=== PATIENT | female | born 2000 | race African-American/Black ===

== ENCOUNTER 2025-02-08 13:07 | Emergency (ER) | payer MEDICAID, OTHER ==
[~2025-02-08] VITALS: Ht 157.5 cm; Wt 70.1 kg
[2025-02-08 13:21] VITALS: BP 123/80; PULSE 98; RESP 16; TEMP 97.9; O2SAT 99
--- NOTE | 2025-02-08 13:23 | ED.PDOC ---
History of Present Illness HPI Comments A 24 YEAR OLD FEMALE PRESENTS TO THE ED WITH COMPLAINT OF ANXIETY AND PELVIC DISCOMFORT. PATIENT STATES SHE HAS BEEN EXPERIENCING INCREASED ANXIETY AND STRESS OFF AND ON FOR THE PAST 3 WEEKS DUE TO A FAMILY MEMBER PASSING AWAY RECENTLY. PATIENT NOTES SHE ALSO HAS A HISTORY OF UTERINE FIBROIDS AND HAS BEEN EXPERIENCING PELVIC DISCOMFORT/PRESSURE A RESULT OFF AND ON FOR THE PAST 3 DAYS. PATIENT DENIES DYSURIA, HEMATURIA, SI, HI, FEVER, CHILLS, SHORTNESS OF BREATH, CHEST PAIN, ABDOMINAL PAIN, NAUSEA, VOMITING, HEADACHE, OR OTHER COMPLAINTS. NO OTHER SYMPTOMS OR MODIFYING FACTORS AT THIS TIME. PATIENT IS ALERT, ORIENTED X 4, AND HAS STEADY GAIT. Time Seen by MD: 13:18 Reviewed Notes: Nurses Notes, Medications, Allergies Home Meds Active Scripts Naproxen (Naproxen) 500 Mg Tab, 500 MG PO BID, #30 TAB Prov:DAVID CARRILLO 02/08/25 Hydroxyzine Pamoate (Vistaril) 25 Mg Cap, 1 CAP PO BID, #30 CAP Prov:DAVID CARRILLO 02/08/25 Information Source: Patient Mode of Arrival: Ambulatory Severity: Moderate Timing: Weeks Duration: Intermittent Prehospital treatment: None Medication Refill: For: Other (ANXIETY AND PELVIC DISCOMFORT) Past Medical History PAST MEDICAL HISTORY: Anxiety Past Medical History (Other): UTERINE FIBROIDS Surgical History: Denies all surgeries MAILROOM COORDINATOR History: No Pertinent MAILROOM COORDINATOR History Family History Family History: Reviewed,noncontributory to illness Social History Smoker: Non-Smoker Alcohol: Denies ETOH Use Drugs: Denies Drug Use Lives In: Home Constitutional: reports: others (ANXIOUS ); denies: chills, diaphoresis, fatigue, fever, malaise, sweats, weakness EENTM: denies: blurred vision, double vision, ear bleeding, ear discharge, ear drainage, ear pain, ear ringing, eye pain, eye redness, hearing loss, mouth pain, mouth swelling, nasal discharge, nose bleeding, nose congestion, nose pain, photophobia, tearing, throat pain, throat swelling, voice changes, others Respiratory: denies: cough, hemoptysis, orthopnea, SOB at rest, shortness of breath, SOB with excertion, stridor, wheezing, others Cardiovascular: denies: chest pain, dizzy spells, diaphoresis, Dyspnea on exertion, edema, irregular heart beat, left arm pain, lightheadedness, palpitations, PND, syncope, others Gastrointestinal: denies: abdomen distended, abdominal pain, blood streaked bowels, constipated, diarrhea, dysphagia, difficulty swallowing, hematemesis, melena, nausea, poor appetite, poor fluid intake, rectal bleeding, rectal pain, vomiting, others Genitourinary: reports: pain (PELVIC DISCOMFORT/PRESSURE); denies: abnormal vagina bleeding, burning, dyspareunia, dysuria, flank pain, frequency, hematuria, incontinence, , vagina discharge, urgency, others Neurological: denies: dizziness, fainting, headache, left sided numbness, left sided weakness, numbness, paresthesia, pre-existing deficit, right sided numbnes s, right sided weakness, seizure, speech problems, tingling, tremors, weakness, others Musculoskeletal: denies: back pain, gout, joint pain, joint swelling, muscle pain, muscle stiffness, neck pain, others Integumetry: denies: bruises, change in color, change in hair/nails, dryness, laceration, lesions, lumps, rash, wounds, others Allergic/Immunocompromised: denies: Difficulty Healing, Frequent Infections, Hives, Itching, others Hematologic/Lymphatic: denies: anemia, blood clots, easy bleeding, easy bruising, swollen glands, others Endocrine: denies: excessive hunger, excessive sweating, excessive thirst, excessive urination, flushing, intolerance to cold, intolerance to heat, unexplained weight gain, unexplained weight loss, others Psychiatric: reports: anxiety; denies: bipolar disorder, depression, hopeless, panic disorder, schizophrenia, sleepless, suicidal, others All Other Systems: Reviewed and Negative Physical Exam General Appearance: Mild Distress, Normal, Other (ANXIOUS ) HEENT: Normal ENT Inspection, PERRL/EOMI, Pharynx Normal, TMs Normal Neck: Full Range of Motion, Non-Tender, Normal, Normal Inspection Respiratory: Chest Non-Tender, Lungs Clear, No Accessory Muscle Use, No Respiratory Distress, Normal Breath Sounds Cardiovascular: No Edema, No JVD, No Murmur, No Gallop, Normal Peripheral Pulses, Regular Rate/Rhythm Breast Exam: Deferred Gastrointestinal: No Organomegaly, Non Tender, No Pulsatile Mass, Normal Bowel Sounds, Soft Genitalia: Deferred Pelvic: Normal External Exam, Tender Uterus (NO GUARDING AND REBOUND TENDERNESS. ) Rectal: Deferred Extremities: No calf tenderness, Normal capillary refill, Normal inspection, Normal range of motion, Non-tender, No pedal edema Musculoskeletal : Apperance: Normal Neurologic: Alert, back office medical assistant II-XII nml as Tested, No Motor Deficits, Normal Affect, Normal Mood, No Sensory Deficits Cerebellar Function: Normal Reflexes: Normal Skin: Dry, Normal Color, Warm Peripheral Pulses: 2+ carotid (R), 2+ carotid (L) Lymphatic: No Adenopathy Was a procedure done? Was a procedure done?: No Differential Dx Considerations may include: UTI, ACUTE CYSTITIS, ANXIETY REACTION, HYPERVENTILATION SYNDROME, UTERINE FIBROIDS,, DEHYDRATION, ELECTROLYTE IMBALANCE X-Ray, Labs, Meds, VS Vital Signs Date Time Temp Pulse Resp B/P (MAP) Pulse Ox O2 Delivery O2 Flow Rate FiO2 02/08/25 13:21 97.9 98 16 123/80 (94) 99 97.9 Lab Test 02/08/25 14:01 02/08/25 13:46 Range/Units Urine Color Light-yellow Yellow Urine Clarity Clear Clear Urine pH 6.5 5.0-9.0 Urine Specific [place] 1.003 1.001-1.035 Urine Protein Negative Negative Urine Ketones Negative Negative Urine Blood Negative Negative /uL Urine Nitrite Negative Negative Urine Bilirubin Negative Negative Urine Urobilinogen Normal Negative mg/dL Urine Leukocyte Esterase 1+ Negative /uL Urine RBC <1 0 - 4 /hpf Urine Microscopic WBC 3 0-5 /HPF Urine Squamous Epithelial Cells Few <5 /hpf Urine Bacteria Few H None Seen /hpf Urine Glucose Normal Normal mg/dL Urine Test Negative Negative White Blood Count 4.6 4.4-10.8 10^3/uL Red Blood Count 4.59 4.0-5.20 10^6/uL Hemoglobin 12.8 12.2-16.2 g/dL Hematocrit 38.7 36.0-46.0 % Mean Corpuscular Volume 84.3 80.0-100.0 fL Mean Corpuscular Hemoglobin 27.8 L 28.0-32.0 pg Mean Corpuscular Hemoglobin Concent 33.0 32.0-36.0 g/dL Red Cell Distribution Width 14.8 H 11.8-14.3 % Platelet Count 212 140-450 10^3/uL Mean Platelet Volume 7.8 6.9-10.8 fL Neutrophils (%) (Auto) 70.5 37.0-80.0 % Lymphocytes (%) (Auto) 21.3 10.0-50.0 % Monocytes (%) (Auto) 6.9 0.0-12.0 % Eosinophils (%) (Auto) 0.8 0.0-7.0 % Basophils (%) (Auto) 0.5 0.0-2.0 % Neutrophils # (Auto) 3.3 1.6-8.6 10 ^3/uL Lymphocytes # (Auto) 1.0 0.4-5.4 10 ^3/uL Monocytes # (Auto) 0.3 0-1.3 10 ^3/uL Eosinophils # (Auto) 0 0-0.8 10 ^3/uL Basophils # (Auto) 0 0-0.2 10 ^3/uL Nucleated Red Blood Cells 0.0 % Sodium Level 140 136-145 mmol/L Potassium Level 3.2 L 3.5-5.1 mmol/L Chloride Level 104 98-107 mmol/L Carbon Dioxide Level 26 20-31 mmol/L Anion Gap 10 5-15 Blood Urea Nitrogen 8 L 9-23 mg/dL Creatinine 0.77 0.550-1.02 mg/dL Glomerular Filtration Rate Calc 110 >90 mL/min BUN/Creatinine Ratio 10.4 10.0-20.0 Serum Glucose 82 74-106 mg/dL Calcium Level 9.9 8.7-10.4 mg/dL Troponin I High Sensitivity < 3 L </=34 ng/L X-Ray, Labs, Meds, VS Comment EXTERNAL MEDICAL RECORDS REVIEWED: [NONE] INDEPENDENT HISTORIANS: [NONE] SOCIAL DETERMINANTS OF HEALTH: [NONE] LABS ORDERED: CBC, BMP, UA, URINE , TROPONIN REVIEWED AND INTERPRETED RESULTS: K 3.2, LEUKO 1+ IMAGING ORDERED: NONE TREATMENTS ORDERED: POTASSIUM 20MEQ PO PROCEDURES PERFORMED: NONE CRITICAL CARE TIME: NONE I HAVE DISCUSSED THE PATIENT WITH THE ATTENDING PHYSICIAN DR. JARRETT AND HE AGREES WITH THE PATIENT'S PLAN OF CARE AND DISPOSITION. BASED ON HISTORY OF PRESENT ILLNESS, AND PHYSICAL EXAM, PATIENT WILL BE DISCHARGED HOME. DISCUSSED PLAN FOR DISCHARGE HOME WITH RX [VISTARIL 25MG AND NAPROXEN]. MEDICATION WARNINGS GIVEN. SHARED DECISION MAKING: PATIENT INSTRUCTED TO FOLLOW UP WITH PRIMARY CARE PROVIDER IN 1-2 DAYS FOR RE-EVALUATION OF SYMPTOMS. PATIENT VERBALIZES UND ERSTANDING TO RETURN TO ED FOR NEW OR WORSENING SYMPTOMS OR IF FOLLOW UP WITH PCP CANNOT BE OBTAINED. PATIENT FEELS COMFORTABLE GOING HOME AT THIS TIME. ALL QUESTIONS ADDRESSED AT TIME OF DISCHARGE. Time of 1ST Reevaluation: 15:00 Reevaluation 1ST: Improved Patient Education/Counseling: Diagnosis, Treatment, Need For Follow Up Family Education/Counseling: Diagnosis, Treatment, Need For Follow Up Medical Screening: No EMC Exist At This Time SEPSIS Sepsis Screen Vital Signs Date Time Temp Pulse Resp B/P (MAP) Pulse Ox O2 Delivery O2 Flow Rate FiO2 02/08/25 13:21 97.9 98 16 123/80 (94) 99 97.9 Laboratory Tests Test 02/08/25 13:46 White Blood Count 4.6 10^3/uL (4.4-10.8) Departure 1 Departure Time of Disposition: 15:00 Impression: Primary Impression: Anxiety reaction Additional Impression: Hx of uterine leiomyoma Disposition: 01 HOME / SELF CARE / HOMELESS Condition: Stable Additional Instructions: FOLLOW-UP WITH PCP IN 1 TO 2 DAYS. TAKE MEDICATIONS PRESCRIBED. RETURN TO ED FOR ANY NEW OR WORSENING SYMPTOMS. e-Prescriptions Naproxen (Naproxen) 500 Mg Tab 500 MG PO BID, #30 TAB Prov: DAVID CARRILLO 02/08/25 Hydroxyzine Pamoate (Vistaril) 25 Mg Cap 1 CAP PO BID, #30 CAP Prov: DAVID CARRILLO 02/08/25 Discharged With: Self Critical Care Note Critical Care Time?: No Stability Stability form required: No I personally scribed for DAVID CARRILLO ([email or web address]) on 02/08/25 at 13:23. Electronically submitted by Volodymyr Howard ([email or web address]). I personally scribed for DAVID CARRILLO ([email or web address]) on 02/08/25 at 14:31. Electronically submitted by Volodymyr Howard ([email or web address]). DAVID CARRILLO Feb 08, 2025 13:23
[2025-02-08 14:04] LABS: Hematocrit 38.7 % (36.0-46.0); Hemoglobin 12.8 g/dL (12.2-16.2); Mean Corpuscular Hemoglobin 27.8 pg (28.0-32.0); Mean Corpuscular Volume 84.3 fL (80.0-100.0); Nucleated Red Blood Cells % 0.0 %
[2025-02-08 14:15] LABS: Chloride 104 mmol/L (98-107); Potassium 3.2 mmol/L (3.5-5.1); Sodium 140 mmol/L (136-145)
[2025-02-08 14:16] LABS: Urine Protein, UAD Negative (Negative)
[2025-02-08 14:16] LABS: Anion Gap 10 (5-15); Calcium 9.9 mg/dL (8.7-10.4); Carbon Dioxide 26 mmol/L (20-31)
[2025-02-08 14:21] LABS: BUN/Creatinine Ratio 10.4 (10.0-20.0); Glucose 82 mg/dL (74-106)
[2025-02-08 14:23] LABS: Blood Urea Nitrogen 8 mg/dL (9-23)
[2025-02-08] MEDS ORDERED: NAPR-746 PO (14:41)
[2025-02-08] MEDS ORDERED: HYDR25CA PO (14:41)
[2025-02-08] MEDS: POTASSIUM CHL 20 Meq TABLET PO ONE (14:59)
== END 2025-02-08 14:59 | disposition home or self-care (01) ==
LOC: ER 13:07
DX: F41.1 Generalized anxiety disorder (principal); Z86.018 Personal history of other benign neoplasm
CPT/HCPCS: 36415; 80048; 81001; 81025; 84484; 85025

== ENCOUNTER 2025-03-06 16:13 | Emergency (ER) | payer MEDICAID, OTHER ==
[~2025-03-06] VITALS: Ht 157.5 cm; Wt 68.7 kg
[~2025-03-06 16:13] MED LIST: HYDR25CA PO; NAPR-746 PO
--- NOTE | 2025-03-06 16:57 | ED.PDOC ---
History of Present Illness HPI Comments A 24 YEAR OLD FEMALE PRESENTS TO THE ED WITH COMPLAINT OF SUPRAPUBIC PAIN. PATIENT STATES SHE HAS BEEN EXPERIENCING SUPRAPUBIC/PELVIC PAIN OFF AND ON FOR THE PAST 1 MONTH. PATIENT REPORTS SHE FEELS LIKE THERE IS A LUMP IN THIS REGION, BUT IS NOT SURE. PATIENT NOTES SHE HAS A HISTORY OF UTERINE FIBROIDS, BUT IS NOT SURE IF THIS IS WHAT IS CAUSING HER PAIN AT THIS TIME. PATIENT WAS HERE IN THE ED 1 MONTH AGO FOR THE SAME COMPLAINT, WHERE LABS WERE DONE ALL OF WHICH WERE NORMAL. PATIENT DENIES DYSURIA, HEMATURIA, FLANK PAIN, FEVER, CHILLS, SHORTNESS OF BREATH, CHEST PAIN, ABDOMINAL PAIN, NAUSEA, VOMITING, HEADACHE, OR OTHER COMPLAINTS. NO OTHER SYMPTOMS OR MODIFYING FACTORS AT THIS TIME. PATIENT IS ALERT, ORIENTED X 4, AND HAS STEADY GAIT. Chief Complaint: Pelvic Pain Time Seen by MD: 16:19 Reviewed Notes: Nurses Notes, Medications, Allergies Allergies: Coded Allergies: NO KNOWN ALLERGIES (Unverified , 03/06/25) Home Meds Active Scripts Naproxen (Naproxen) 500 Mg Tab, 500 MG PO BID, #30 TAB Prov:DAVID CARRILLO 02/08/25 Hydroxyzine Pamoate (Vistaril) 25 Mg Cap, 1 CAP PO BID, #30 CAP Prov:DAVID CARRILLO 02/08/25 Information Source: Patient Mode of Arrival: Ambulatory Severity: Moderate Timing: Weeks Duration: Intermittent Prehospital treatment: None Medication Refill: For: Other (SUPRAPUBIC PAIN) Past Medical History PAST MEDICAL HISTORY: Anxiety Surgical History: 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 Family History Family History: Reviewed,noncontributory to illness Social History Smoker: Non-Smoker Alcohol: Denies ETOH Use Drugs: Denies Drug Use Lives In: Home Constitutional: denies: chills, diaphoresis, fatigue, fever, malaise, sweats, weakness, others EENTM: denies: blurred vision, double vision, ear bleeding, ear discharge, ear drainage, ear pain, ear ringing, eye pain, eye redness, hearing loss, mouth pain, mouth swelling, nasal discharge, nose bleeding, nose congestion, nose pain, photophobia, tearing, throat pain, throat swelling, voice changes, others Respiratory: denies: cough, hemoptysis, orthopnea, SOB at rest, shortness of breath, SOB with excertion, stridor, wheezing, others Cardiovascular: denies: chest pain, dizzy spells, diaphoresis, Dyspnea on exertion, edema, irregular heart beat, left arm pain, lightheadedness, palpitations, PND, syncope, others Gastrointestinal: denies: abdomen distended, abdominal pain, blood streaked bowels, constipated, diarrhea, dysphagia, difficulty swallowing, hematemesis, melena, nausea, poor appetite, poor fluid intake, rectal bleeding, rectal pain, vomiting, others Genitourinary: reports: pain (SUPRAPUBIC PAIN); denies: abnormal vagina bleeding, burning, dyspareunia, dysuria, flank pain, frequency, hematuria, incontinence, , vagina discharge, urgency, others Neurological: denies: dizziness, fainting, headache, left sided numbness, left sided weakness, numbness, paresthesia, pre-existing deficit, right sided numbness, right sided weakness, seizure, speech problems, tingling, tremors, weakness, others Musculoskeletal: denies: back pain, gout, joint pain, joint swelling, muscle pain, muscle stiffness, neck pain, others Integumetry: denies: bruises, change in color, change in hair/nails, dryness, laceration, lesions, lumps, rash, wounds, others Allergic/Immunocompromised: denies: Difficulty Healing, Frequent Infections, Hives, Itching, others Hematologic/Lymphatic: denies: anemia, blood clots, easy bleeding, easy bruising, swollen glands, others Endocrine: denies: excessive hunger, excessive sweating, excessive thirst, excessive urination, flushing, intolerance to cold, intolerance to heat, unexplained weight gain, unexplained weight loss, others Psychiatric: denies: anxiety, bipolar disorder, depression, hopeless, panic disorder, schizophrenia, sleepless, suicidal, others All Other Systems: Reviewed and Negative Physical Exam General Appearance: No Apparent Distress, Normal HEENT: Normal ENT Inspection, PERRL/EOMI, Pharynx Normal, TMs Normal Neck: Full Range of Motion, Non-Tender, Normal, Normal Inspection Respiratory: Chest Non-Tender, Lungs Clear, No Accessory Muscle Use, No Respiratory Distress, Normal Breath Sounds Cardiovascular: No Edema, No JVD, No Murmur, No Gallop, Normal Peripheral Pulses, Regular Rate/Rhythm Breast Exam: Deferred Gastrointestinal: No Organomegaly, Non Tender, No Pulsatile Mass, Normal Bowel Sounds, Soft Genitalia: Deferred Pelvic: Normal External Exam, Tender Adnexa (MILD TENDERNESS SUPRAPUBIC REGION, NO GUARDING AND REBOUND TENDERNESS. ), Tender Uterus Rectal: Deferred Extremities: No calf tenderness, Normal capillary refill, Normal inspection, Normal range of motion, Non-tender, No pedal edema Musculoskeletal : Apperance: Normal Neurologic: Alert, revenue accounting manager II-XII nml as Tested, No Motor Deficits, Normal Affect, Normal Mood, No Sensory Deficits Cerebellar Function: Normal Reflexes: Normal Skin: Dry, Normal Color, Warm Peripheral Pulses: 2+ carotid (R), 2+ carotid (L), 2+ dorsalis pedis (R), 2+ do rsalis pedis (L) Lymphatic: No Adenopathy Was a procedure done? Was a procedure done?: No Differential Dx Considerations may include: ACUTE UTI, ACUTE CYSTITIS, UTERINE FIBROIDS, OVARIAN CYST, MUSCLE STRAIN X-Ray, Labs, Meds, VS Vital Signs Date Time Temp Pulse Resp B/P (MAP) Pulse Ox O2 Delivery O2 Flow Rate FiO2 03/06/25 17:40 94 18 99 Room Air 03/06/25 17:40 97.9 94 18 110/69 (83) 99 97.9 03/06/25 16:14 98.2 89 16 124/76 98 98.2 Technique: Real-time ultrasound images through the pelvis using a transabdominal transducer Indication: SURPAPUBIC PAIN AND PELVIC PAIN Comparison: None Findings: The uterus measures 12.2 cm. Uterus is enlarged and heterogeneous in appearance. Multiple uterine leiomyomas present. This includes a peripherally calcified intramural leiomyoma measuring 3.4 cm. Intramural leiomyoma measuring 4.7 cm. Endometrial thickness at the upper limits of normal measuring 14 mm. Right ovary measures 8.7 x 5.1 x 6.2 cm. Normal flow on color doppler images. Right ovarian cystic lesion with simple features measuring 6.2 cm. Arterial waveforms present. Left ovary measures 2.8 x 1.6 x 2.2 cm. Normal flow on color doppler images. No focal masses are identified. There is no significant free fluid in the pelvis. Impression: 6.2 cm right ovarian cystic lesion with simple features. Recommend program advisor consultation for further evaluation, management. Enlarged uterus with multiple leiomyomas measuring up to 4.7 cm. This can be further evaluated with MRI pelvis with and without contrast ATED BY: APOLINAR PERKINS MD DICTATED DATE/TIME: 03/06/251743 SIGNED BY: APOLINAR PERKINS MD SIGNED DATE/TIME: 03/06/251743 CC: X-Ray, Labs, Meds, VS Comment EXTERNAL MEDICAL RECORDS REVIEWED: [NONE] INDEPENDENT HISTORIANS: [NONE] SOCIAL DETERMINANTS OF HEALTH: [NONE] LABS ORDERED: NONE REVIEWED AND INTERPRETED RESULTS: NONE PATIENT DECLINED AND LAB TESTS AT THIS TIME SHE STATES SHE HAS NO SYMPTOMS THAT INDICATE A NEED FOR BLOOD TESTS. IMAGING ORDERED: US PELVIS TREATMENTS ORDERED: PT DECLINED PAIN MEDICATION AND RX. PROCEDURES PERFORMED: NONE CRITICAL CARE TIME: NONE I HAVE DISCUSSED THE PATIENT WITH THE ATTENDING PHYSICIAN DR. JARRETT AND HE AGREES WITH THE PATIENT'S PLAN OF CARE AND DISPOSITION. BASED ON HISTORY OF PRESENT ILLNESS, AND PHYSICAL EXAM, PATIENT WILL BE DISCHARGED HOME. SHARED DECISION MAKING: PATIENT INSTRUCTED TO FOLLOW UP WITH PRIMARY CARE PROVIDER IN 1-2 DAYS FOR RE-EVALUATION OF SYMPTOMS FOR REFERRAL TO A DREDGE PIPE INSTALLER FOR FURTHER EVALUATION OF HER UTERINE FIBROIDS AND OVARIAN CYST. PATIENT VERBALIZES UNDERSTANDING TO RETURN TO ED FOR NEW OR WORSENING SYMPTOMS OR IF FOLLOW UP WITH PCP CANNOT BE OBTAINED. PATIENT FEELS COMFORTABLE GOING HOME AT THIS TIME. ALL QUESTIONS ADDRESSED AT TIME OF DISCHARGE. Images Reviewed?: Images reviewed and evaluated by me Time of 1ST Reevaluation: 17:46 Reevaluation 1ST: Improved Patient Education/Counseling: Diagnosis, Treatment, Need For Follow Up Family Education/Counseling: Diagnosis, Treatment, Need For Follow Up Medical Screening: No EMC Exist At This Time SEPSIS Sepsis Screen Date sepsis recognized/suspect: Mar 06, 2025 Time Sepsis recognized/suspect: 1614 Recent Procedure: No On Antibiotic Therapy: No Respiratory Rate >20: No Heart Rate >90: No Temp<36 C (96.8 F) or >38.3 C: No SBP <90 or MAP <65 mmHG: No New Acute Mental Status Change: No Is the patient on CPAP, BIPAP,: No Physician Orders Pelvic (03/06/25 16:49) Vital Signs Date Time Temp Pulse Resp B/P (MAP) Pulse Ox O2 Delivery O2 Flow Rate FiO2 03/06/25 17:40 94 18 99 Room Air 03/06/25 17:40 97.9 94 18 110/69 (83) 99 97.9 03/06/25 16:14 98.2 89 16 124/76 98 98.2 Departure 1 Departure Time of Disposition: 17:46 Impression: Primary Impression: Uterine fibroid Qualified Codes: D25.9 - Leiomyoma of uterus, unspecified Additional Impression: Right ovarian cyst Disposition: HOME / SELF CARE / HOMELESS Condition: Stable Additional Instructions: FOLLOW-UP WITH PCP IN 1 TO 2 DAYS FOR REFERRAL TO DREDGE PIPE INSTALLER. RETURN TO ED FOR ANY NEW OR WORSENING SYMPTOMS. Discharged With: Self Critical Care Note Critical Care Time?: No Stability Stability form required: No I personally scribed for DAVID CARRILLO ([email or web address]) on 03/06/25 at 16:57. Electronically submitted by Volodymyr Howard ([email or web address]). I personally scribed for DAVID CARRILLO ([email or web address]) on 03/06/25 at 17:35. Electronically submitted by Volodymyr Howard ([employer]). I personally scribed for DAVID CARRILLO ([email or web address]) on 03/06/25 at 17:53. Electronically submitted by Volodymyr Howard ([employer]). DAVID CARRILLO Mar 06, 2025 16:57
[2025-03-06 17:40] VITALS: BP 110/69; PULSE 94; RESP 18; TEMP 97.9; O2SAT 99
--- NOTE | 2025-03-06 17:45 | DVH ---
Technique: Real-time ultrasound images through the pelvis using a transabdominal transducer Indication: SURPAPUBIC PAIN AND PELVIC PAIN Comparison: None Findings: The uterus measures 12.2 cm. Uterus is enlarged and heterogeneous in appearance. Multiple uterine l eiomyomas present. This includes a peripherally calcified intramural leiomyoma measuring 3.4 cm. Intr amural leiomyoma measuring 4.7 cm. Endometrial thickness at the upper limits of normal measuring 14 m m. Right ovary measures 8.7 x 5.1 x 6.2 cm. Normal flow on color doppler images. Right ovarian cystic [place] with simple features measuring 6.2 cm. Arterial waveforms present. Left ovary measures 2.8 x 1.6 x 2.2 cm. Normal flow on color doppler images. No focal masses are katalina ntified. There is no significant free fluid in the pelvis. Impression: 6.2 cm right ovarian cystic lesion with simple features. Recommend personal financial advisor consultation for further evalu ation, management. Enlarged uterus with multiple leiomyomas measuring up to 4.7 cm. This can be further evaluated with MRI pelvis with and without contrast
== END 2025-03-06 17:42 | disposition home or self-care (01) ==
LOC: ER 16:13
DX: D25.9 Leiomyoma of uterus, unspecified (principal); N83.201 Unspecified ovarian cyst, right side; F41.9 Anxiety disorder, unspecified; Z86.018 Personal history of other benign neoplasm; Z79.899 Other long term (current) drug therapy
CPT/HCPCS: 76856